=== PATIENT | male | born 1975 | race Caucasian/White ===

== ENCOUNTER 2024-11-02 21:29 | Inpatient (IN) | payer MEDICARE, MEDICAID ==
[~2024-11-02] VITALS: Ht 180.3 cm; Wt 90.6 kg
[~2024-11-02 21:29] MED LIST: ENAL10TA86 PO; LITH300C3 PO; METF1000 PO; METF500T PO; PRO20T PO; RABE20TA19 PO; SERT100T PO; SIMV20TA20 PO
[2024-11-02 22:46] LABS: Urine Protein, UAD Negative (Negative)
--- NOTE | 2024-11-02 22:51 | ED.PDOC ---
GI ASSESSMENT HPI Comments 48-year-old male who came to ER via EMS for abdominal pain. Patient does have history of diabetes. States he has been having abdominal pain for the past 3 days. Was seen at the [facility] at [place], diagnosed with gallstones, and was advised surgery. Few hours Ago patient started having episodes of nausea, vomiting and loose nonbloody diarrhea. Patient was given Zofran and Tylenol by paramedics while EN route to the ER REVIEW OF SYSTEMS: General: No fever, no chills, or fatigue HEENT: No sore throat, no earache, no congestion, no neck pain. Cardiac: No chest pain. No palpitations. Lungs: No shortness of breath, no cough. GI: Negative nausea, no vomiting, no diarrhea, no constipation, positive abdominal pain : No dysuria, frequency, or urgency. No hematuria. Musculoskeletal: No joint pain , no joint swelling, no extremity edema. Skin: No rash, no itching. Neuro: No headache, no dizziness, no weakness PHYSICAL EXAM: General: Awake, alert and oriented. No acute distress. Skin: Skin in warm, dry and intact. Appropriate color for ethnicity. HEENT: The head is normocephalic and atraumatic. Conjunctivae are clear without exudates or hemorrhage. Sclera is non-icteric. EOM are intact. No signs of nystagmus. Eyelids are normal in appearance without swelling or lesions. Oral mucosa is pink and moist Neck: The neck is supple with normal range of motion. No JVD. Cardiac: Heart rate and rhythm are normal. No murmurs, gallops, or rubs are auscultated. Respiratory: No signs of respiratory distress. Lung sounds are clear in all lobes bilaterally without rales, rhonchi, or wheezes. Abdominal: Abdomen is soft, positive right upper quadrant tenderness without distention, guarding or rigidity. Bowel sounds are present and normoactive in all four quadrants. Extremities: Upper and lower extremities are atraumatic in appearance without deformity or edema. Neurological: The patient is awake, alert and oriented to person, place, and time with normal speech. Speech is clear. There is no facial asymmetry. Psychiatric: Appropriate mood and affect. Good judgement and insight. 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 Allergies: Coded Allergies: Iodine (Verified Allergy, Severe, STOP BREATHING, 10/29/09) Home Meds Reported Medications Propranolol Hcl (Inderal) 20 Mg Tb, 20 MG PO DAILY 10/29/09 Sertraline Hcl (Zoloft) 100 Mg Tab, 100 MG PO DAILY 10/29/09 [place] Carbonate ([place] Carbonate) 300 Mg Cap, 600 MG PO BID 10/29/09 Enalapril Maleate (Vasotec) 10 Mg Tab, 10 MG PO DAILY 10/29/09 Rabeprazole Sodium (Aciphex) 20 Mg Tab, MG PO DAILY 10/29/09 Simvastatin (Simvastatin) 20 Mg Tab, 20 MG PO DAILY 10/29/09 Metformin Hydrochloride (Glucophage) 500 Mg Tab, 500 MG PO QHSP 10/29/09 Metformin Hydrochloride (Glucophage) 1,000 Mg Tab, 1000 MG PO DAILY 10/29/09 Information Source: Patient, Emergency Med Personnel Mode of Arrival: EMS Past Medical History PAST MEDICAL HISTORY: DM, Gallstones Surgical History (Other): Back surgery Family History Family History: Reviewed,noncontributory to illness Social History Smoker: Non-Smoker Alcohol: Denies ETOH Use Drugs: Denies Drug Use Lives In: Home Was a procedure done? Was a procedure done?: No GI differential Dx Differential Diagnosis: Cholecystitis, Constipation, Diverticular disease, Gastritis/PUD, Gastroenteritis, Hernia, Pancreatitis, UTI, Urolithiasis, Dehydration, Diabetes/ DKA X-Ray, Labs, Meds, VS Vital Signs Date Time Temp Pulse Resp B/P (MAP) Pulse Ox O2 Delivery O2 Flow Rate FiO2 11/03/24 01:38 98.1 97 20 129/78 (95) 96 98.1 11/03/24 01:38 Room Air* 0 21 11/03/24 01:21 79 18 151/78 11/03/24 00:19 97.6 98 18 138/90 (106) 95 97.6 11/03/24 00:11 98 18 138/90 11/02/24 21:35 98.9 74 20 136/86 99 98.9 Lab Test 11/02/24 22:48 11/02/24 22:30 Range/Units White Blood Count 9.8 4.4-10.8 10^3/uL Red Blood Count 5.58 4.5-5.90 10^6/uL Hemoglobin 14.9 13.5-17.5 g/dL Hematocrit 45.3 41.0-53.0 % Mean Corpuscular Volume 81.1 80.0-100.0 fL Mean Corpuscular Hemoglobin 26.7 L 28.0-32.0 pg Mean Corpuscular Hemoglobin Concent 32.9 32.0-36.0 g/dL Red Cell Distribution Width 16.0 H 11.8-14.3 % Platelet Count 229 140-450 10^3/uL Mean Platelet Volume 7.9 6.9-10.8 fL Neutrophils (%) (Auto) 84.7 H 37.0-80.0 % Lymphocytes (%) (Auto) 9.5 L 10.0-50.0 % Monocytes (%) (Auto) 5.5 0.0-12.0 % Eosinophils (%) (Auto) 0.1 0.0-7.0 % Basophils (%) (Auto) 0.2 0.0-2.0 % Neutrophils # (Auto) 8.3 1.6-8.6 10 ^3/uL Lymphocytes # (Auto) 0.9 0.4-5.4 10 ^3/uL Monocytes # (Auto) 0.5 0-1.3 10 ^3/uL Eosinophils # (Auto) 0 0-0.8 10 ^3/uL Basophils # (Auto) 0 0-0.2 10 ^3/uL Nucleated Red Blood Cells 0.1 % Sodium Level 136 136-145 mmol/L Potassium Level 4.5 3.5-5.1 mmol/L Chloride Level 99 98-107 mmol/L Carbon Dioxide Level 24 20-31 mmol/L Anion Gap 13 5-15 Blood Urea Nitrogen 18 9-23 mg/dL Creatinine 1.26 0.700-1.30 mg/dL Glomerular Filtration Rate Calc 70 >90 mL/min BUN/Creatinine Ratio 14.3 10.0-20.0 Serum Glucose 178 H 74-106 mg/dL Calcium Level 9.4 8.7-10.4 mg/dL Total Bilirubin 0.5 0.2-1.0 mg/dL Aspartate Amino Transferase (AST) 21 13-40 U/L Alanine Aminotransferase (ALT) 17 7-40 U/L Alkaline Phosphatase 125 H 46-116 U/L Total Protein 7.7 5.7-8.2 g/dL Albumin 4.7 3.2-4.8 g/dL Urine Color Light-yellow Yellow Urine Clarity Clear Clear Urine pH 5.5 5.0-9.0 Urine Specific [place] 1.029 1.001-1.035 Urine Protein Negative Negative Urine Ketones 2+ H Negative Urine Blood Negative Negative /uL Urine Nitrite Negative Negative Urine Bilirubin Negative Negative Urine Urobilinogen Normal Negative mg/dL Urine Leukocyte Esterase Negative Negative /uL Urine RBC 1 0 - 3 /hpf Urine Microscopic WBC 2 0-3 /HPF Urine Squamous Epithelial Cells Few <5 /hpf Urine Bacteria None seen None Seen /hpf Urine Mucus Few None Seen Urine Glucose 4+ H Normal mg/dL Current Medications Medications (Trade) Dose Ordered Sig/Donna Route Start Time Stop Time Status Last Admin Morphine Sulfate 2 mg ONCE ONCE IV 11/02/24 22:45 11/02/24 22:46 DC 11/03/24 00:11 Ondansetron HCl (Zofran) 4 mg ONCE ONCE IV 11/02/24 22:45 11/02/24 22:46 DC 11/03/24 00:07 PROCEDURE(s): ABPL - CT AB PEL WO CON-NO ORAL OR IV REASON: Right upper quadrant pain ORDER NUMBER(s): [id number], ACCESSION NUMBER(s): [id number] CLINICAL HISTORY: Right upper quadrant pain TECHNIQUE: CT of the abdomen and pelvis was performed without IV contrast. This exam was performed according to our departmental dose optimization program. Up-to-date CT equipment and radiation dose reduction techniques are utilized as appropriate. CTDI 16 DLP 1029 COMPARISON: None FINDINGS: Abdomen/Pelvis: The spleen, pancreas, adrenal glands, liver, gallbladder, kidneys, bladder, and prostate gland are grossly unremarkable. The gallbladder is full of sludge. The abdominal aorta is normal in course and caliber. There are minimal aortic atherosclerotic calcifications. There is no free intraperitoneal air or fluid. There is no enlarged abdominal pelvic lymph node. There is no bowel wall thickening or dilatation. The appendix is normal. There is mild left colon diverticulosis. Other: The imaged lower thorax demonstrates coronary artery calcifications. No acute osseous abnormality is evident. There has been posterior lumbosacral fusion surgery. The left L5 transpedicular screw is broken. Impression: No acute noncontrast CT abnormality of the abdomen / pelvis. Extensive previous lumbar sacral posterior fusion surgery. Left L5 transpedicular screw appears broken. Time of 1ST Reevaluation: 22:48 Reevaluation 1ST: Unchanged Patient Education/Counseling: Need For Follow Up Family Education/Counseling: No Family Present SEPSIS Sepsis Screen Date sepsis recognized/suspect: Nov 02, 2024 Time Sepsis recognized/suspect: 2138 Recent Procedure: No On Antibiotic Therapy: No Respiratory Rate >20: No Heart Rate >90: No Temp<36 C (96.8 F) or >38.3 C: No SBP <90 or MAP <65 mmHG: No New Acute Mental Status Change: No Is the patient on CPAP, BIPAP,: No Physician Orders Ct Ab Pel Wo Con-No Oral Or Iv (11/02/24 22:40) Complete Blood Count (11/03/24 04:00) Comprehensive Metabolic Panel (11/03/24 04:00) Glucose Blood (Accu-Chek Comfort Curve T (11/03/24 07:00) Insulin R (Human) (Insulin R) (11/03/24 22:00) Insulin R (Human) (Insulin R) (11/03/24 07:00) Allergies (11/03/24 02:15) Code Status (11/03/24 02:15) Sodium Chloride 0.9% (11/03/24 02:15) Oxygen Per Hour (11/03/24 02:15) Hydrocodone-Acet 5/325mg Tab ([place] 5/32 (11/03/24 02:15) Ondansetron Hcl (Zofran) (11/03/24 02:15) Complete Blood Count (11/04/24 04:00) Comprehensive Metabolic Panel (11/04/24 04:00) Condition: Serious (11/03/24 02:15) Acetaminophen Tablet (Tylenol Tablet) (11/03/24 02:15) Clear Liq Diet (11/03/24 Breakfast) Bedrest With Bathroom Privileg (11/03/24 02:15) Morphine Sulfate Injection (11/03/24 02:15) Sequential Compression Device (11/03/24 ) Dextrose 50% Syringe (11/03/24 02:15) Vital Signs Date Time Temp Pulse Resp B/P (MAP) Pulse Ox O2 Delivery O2 Flow Rate FiO2 11/03/24 01:38 98.1 97 20 129/78 (95) 96 98.1 11/03/24 01:38 Room Air* 0 21 11/03/24 01:21 79 18 151/78 11/03/24 00:19 97.6 98 18 138/90 (106) 95 97.6 11/03/24 00:11 98 18 138/90 11/02/24 21:35 98.9 74 20 136/86 99 98.9 Laboratory Tests Test 11/02/24 22:48 White Blood Count 9.8 10^3/uL (4.4-10.8) Medications Medications Dose Ordered Sig/Donna Route Start Time Stop Time Status Last Admin Dose Admin Morphine Sulfate 2 mg ONCE ONCE IV 11/02/24 22:45 11/02/24 22:46 DC 11/03/24 00:11 Ondansetron HCl 4 mg ONCE ONCE IV 11/02/24 22:45 11/02/24 22:46 DC 11/03/24 00:07 Departure 1 Departure Time of Disposition: 00:58 Impression: Primary Impression: Right upper quadrant abdominal pain Additional Impressions: Gallbladder sludge Hyperglycemia Disposition: ADMITTED INPATIENT Condition: Stable Comments Patient with continued severe abdominal pain, gallbladder sludge, Patient admitted to hospitalist service for further treatment, evaluation and monitoring. Critical Care Note Critical Care Time?: No Stability Stability form required: No Heart Score Heart Score: Heart Score Response (Comments) Value History N/A 0 EKG N/A 0 Age N/A 0 Risk Factors N/A 0 Troponin N/A 0 Total 0 I personally scribed for KIRSTIN LANGE MD ([email or web address]) on 11/02/24 at 22:51. Electronically submitted by Jonathon Limon ([employer]). I personally scribed for KIRSTIN LANGE MD ([email or web address]) on 11/02/24 at 23:53. Electronically submitted by Jonathon Limon ([employer]). KIRSTIN LANGE MD Nov 02, 2024 22:51
[2024-11-02 23:18] LABS: Hemoglobin 14.9 g/dL (13.5-17.5)
[2024-11-02 23:20] LABS: Hematocrit 45.3 % (41.0-53.0); Mean Corpuscular Hemoglobin 26.7 pg (28.0-32.0); Mean Corpuscular Volume 81.1 fL (80.0-100.0); Nucleated Red Blood Cells % 0.1 %
--- NOTE | 2024-11-02 23:22 | DVH ---
CLINICAL HISTORY: Right upper quadrant pain TECHNIQUE: CT of the abdomen and pelvis was performed without IV contrast. This exam was performed ac cording to our departmental dose optimization program. Up-to-date CT equipment and radiation dose red uction techniques are utilized as appropriate. CTDI 16 DLP 1029 COMPARISON: None FINDINGS: Abdomen/Pelvis: The spleen, pancreas, adrenal glands, liver, gallbladder, kidneys, bladder, and prostate gland are gr ossly unremarkable. The gallbladder is full of sludge. The abdominal aorta is normal in course and caliber. There are minimal aortic atherosclerotic calcifi cations. There is no free intraperitoneal air or fluid. There is no enlarged abdominal pelvic lymph node. There is no bowel wall thickening or dilatation. The appendix is normal. There is mild left colon div erticulosis. Other: The imaged lower thorax demonstrates coronary artery calcifications. No acute osseous abnormality is evident. There has been posterior lumbosacral fusion surgery. The lef t L5 transpedicular screw is broken. Impression: No acute noncontrast CT abnormality of the abdomen / pelvis. Extensive previous lumbar sacral posterior fusion surgery. Left L5 transpedicular screw appears broke n.
[2024-11-02 23:39] LABS: Alanine Aminotransferase 17 U/L (7-40); Albumin 4.7 g/dL (3.2-4.8); Anion Gap 13 (5-15); BUN/Creatinine Ratio 14.3 (10.0-20.0); Bilirubin, Total 0.5 mg/dL (0.2-1.0); Blood Urea Nitrogen 18 mg/dL (9-23); Calcium 9.4 mg/dL (8.7-10.4); Carbon Dioxide 24 mmol/L (20-31); Chloride 99 mmol/L (98-107); Potassium 4.5 mmol/L (3.5-5.1); Sodium 136 mmol/L (136-145); Total Protein 7.7 g/dL (5.7-8.2)
[2024-11-02 23:48] LABS: Alkaline Phosphatase 125 U/L (46-116); Glucose 178 mg/dL (74-106)
[2024-11-03] MEDS: ONDANSETRON HCL 4 MG/2 ML VIAL IV ONE (00:07)
[2024-11-03] MEDS: MORPHINE SULFATE INJ 2 MG/ml SYRG IV ONE (00:11)
[2024-11-03] MEDS ORDERED: DEXTROSE (50%) 50ML SYRG IV PRN (02:15)
[2024-11-03] MEDS ORDERED: HYDROcodone-ACET 5/325MG TAB PO PRN (02:15)
[2024-11-03] MEDS: ONDANSETRON HCL 4 MG/2 ML VIAL IV PRN ×2 (02:38→14:59)
[2024-11-03] MEDS: MORPHINE SULFATE INJ 2 MG/ml SYRG IV PRN ×2 (02:38→08:10)
[2024-11-03] MEDS: SODIUM CHLORIDE 0.9% 1,000 ML IV SCH (03:09)
[2024-11-03] MEDS ORDERED: MORPHINE SULFATE INJ 2 MG/ml SYRG IV ONE (03:30)
[2024-11-03] MEDS: SODIUM CHLORIDE 0.9% 1,000 ML IV ONE (04:16)
[2024-11-03] MEDS: PANTOPRAZOLE 40 MG/10 ML VIAL INJ IV SCH (04:19)
--- NOTE | 2024-11-03 04:37 | DVH ---
CHEST RADIOGRAPH Indication: sob Technique: 1 view Comparison: None FINDINGS: Lines and Tubes: None Lungs/Pleura: Low lung volumes with vascular. No focal consolidation or evident pleural abnormality. Cardiomediastinum: Unremarkable. Other: No acute osseous abnormality. Partially imaged lumbar hardware. IMPRESSION: 1. Low lung volumes without acute cardiopulmonary abnormality.
[2024-11-03 04:41] LABS: Opiate Scree,Urine Neg (NEGATIVE)
[2024-11-03 04:55] LABS: Amphetamine Screen, Urine Neg (NEGATIVE); Barbiturate Scree,Urine Neg (NEGATIVE); Benzodiazephine Screen, Urine Neg (NEGATIVE); Cannabinoid Screen, Urine Neg (NEGATIVE); Cocaine Screen, Urine Neg (NEGATIVE); Phencyclidine Screen, Urine Neg (NEGATIVE)
[2024-11-03 05:43] LABS: Hematocrit 45.0 % (41.0-53.0); Hemoglobin 14.6 g/dL (13.5-17.5); Mean Corpuscular Hemoglobin 26.3 pg (28.0-32.0); Mean Corpuscular Volume 81.3 fL (80.0-100.0); Nucleated Red Blood Cells % 0.0 %
[2024-11-03] MEDS: ACCU-CHEK COMFORT CURVE STRIP VI SCH (06:10)
[2024-11-03] MEDS: InsuLIN REG 1unit/0.01ml Soln (100units/ml) SC SCH ×2 (06:11→21:06)
[2024-11-03 06:31] LABS: Alanine Aminotransferase 15 U/L (7-40); Albumin 4.3 g/dL (3.2-4.8); Alkaline Phosphatase 113 U/L (46-116); Anion Gap 14 (5-15); BUN/Creatinine Ratio 12.8 (10.0-20.0); Blood Urea Nitrogen 14 mg/dL (9-23); Calcium 8.9 mg/dL (8.7-10.4); Carbon Dioxide 21 mmol/L (20-31); Chloride 103 mmol/L (98-107); Cholesterol 121 mg/dL (< 200); Potassium 4.2 mmol/L (3.5-5.1); Sodium 138 mmol/L (136-145); Total Protein 7.3 g/dL (5.7-8.2); Triglycerides 126 mg/dL (< 150)
[2024-11-03 06:32] LABS: Bilirubin, Total 0.3 mg/dL (0.2-1.0); Glucose 132 mg/dL (74-106); HDL Cholesterol 38 mg/dL (40-59)
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
[2024-11-03 06:45] LABS: Lipase 53 U/L (12-53)
--- NOTE | 2024-11-03 07:35 | DVH ---
INDICATION: to rule out Acute Cholecystitis TECHNIQUE: Multiple real-time sonographic images were obtained of the right upper quadrant. COMPARISON: None FINDINGS: The liver demonstrates homogeneous echotexture without focal mass lesions. The liver measu res 18 cm. There is no intrahepatic or extrahepatic ductal dilatation. The common duct measures 0.5 cm. The gallbladder is without evidence of stone or sludge. The gallbladder wall measures 0.3 cm and is w ithin normal limits. The right kidney measures 10.5 cm. The right kidney is normal in contour, size, and shape. The echoge nicity is normal. There is no hydronephrosis. The pancreas is not well visualized due to overlying bowel gas. IMPRESSION: No sonographic evidence of gallstones or acute cholecystitis. Hepatomegaly.
[2024-11-03 09:35] VITALS: BP 97/57; PULSE 86; RESP 16; TEMP 98.2; O2SAT 97
[2024-11-03] MEDS: PIPERACILLIN-TAZOB 3.375GM 100 ML IV SCH ×2 (11:16→17:01)
[2024-11-03] MEDS: LACTATED RINGER'S 1,000 ML IV ONE (12:15)
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
[2024-11-03 12:57] VITALS: BP 127/83; PULSE 87; RESP 17; TEMP 97.9; O2SAT 98
[2024-11-03] MEDS: BACLOFEN 10 MG TAB PO SCH (13:14)
[2024-11-03 17:07] VITALS: BP 115/77; PULSE 87; RESP 20; TEMP 97.9; O2SAT 96
--- NOTE | 2024-11-03 17:32 | DVHINCON2 ---
Date of service: Nov 03, 2024 Referring Physician Nba Reason for Consultation Right upper quadrant abdominal pain History of Present Illness The patient is a 40-year-old male with diabetes type 2, hyperlipidemia, with complains of right upper quadrant abdominal pain radiating to the back for one week. Patient was seen at an outside hospital and told that he might have gallstones or a malignancy. Patient was discharged and subsequently came to this hospital. He states that the pain has been persistent and fluctuates in intensity. It is sharp. He has no prior history of similar symptoms. Patient denies any fevers or chills. He denies melena or hematemesis. Imaging study just to help back surgery Past Medical History Diabetes Hyperlipidemia Past Surgical History Back surgery Family History: Diabetes mellitus G8 MOTHER G8 FATHER FH: cancer G8 MOTHER Family History No gastrointestinal diseases or malignancies Social History No significant tobacco, alcohol or recreational drug use Allergies: Coded Allergies: Iodine (Verified Allergy, Severe, STOP BREATHING, 10/29/09) Home Meds Reported Medications Propranolol Hcl (Inderal) 20 Mg Tb, 20 MG PO DAILY 10/29/09 Sertraline Hcl (Zoloft) 100 Mg Tab, 100 MG PO DAILY 10/29/09 [place] Carbonate ([place] Carbonate) 300 Mg Cap, 600 MG PO BID 10/29/09 Enalapril Maleate (Vasotec) 10 Mg Tab, 10 MG PO DAILY 10/29/09 Rabeprazole Sodium (Aciphex) 20 Mg Tab, MG PO DAILY 10/29/09 Simvastatin (Simvastatin) 20 Mg Tab, 20 MG PO DAILY 10/29/09 Metformin Hydrochloride (Glucophage) 500 Mg Tab, 500 MG PO QHSP 10/29/09 Metformin Hydrochloride (Glucophage) 1,000 Mg Tab, 1000 MG PO DAILY 10/29/09 Current Medications Current Medications Medications (Trade) Dose Ordered Sig/Donna Route PRN Reason Start Time Stop Time Status Last Admin Diagnostic Test (Pha) (Accu-Chek Comfort Curve T) 1 strip ACHS 11/03/24 07:00 11/03/24 17:05 Insulin Human Regular (InsuLIN R) HS SC 11/03/24 22:00 Insulin Human Regular (InsuLIN R) AC SC 11/03/24 07:00 Dextrose 50 ml UD PRN IV Blood Sugar LESS THAN 60 11/03/24 02:15 Sodium Chloride 1,000 ml @ 60 mls/hr [id number] IV 11/03/24 02:15 11/03/24 04:14 DC 11/03/24 03:09 Acetaminophen/ Hydrocodone Bitart ([place] 5/325MG Tab) 1 tab Q4HP PRN PO MODERATE PAIN (4-6 PAIN SCALE) 11/03/24 02:15 11/03/24 04:14 DC Ondansetron HCl (Zofran) 4 mg Q4HP PRN IV NAUSEA / VOMITING 11/03/24 02:15 11/03/24 12:31 DC 11/03/24 08:11 Acetaminophen (Tylenol Tablet) 650 mg Q6HP PRN PO PAIN SCALE 1-3 OR TEMP>100.4 11/03/24 02:15 Morphine Sulfate 2 mg Q4HPRN PRN IV SEVERE PAIN (7-10 PAIN SCALE) 11/03/24 02:15 11/03/24 04:14 DC 11/03/24 02:38 Ondansetron HCl (Zofran) 4 mg Q4HP PRN IV NAUSEA / VOMITING 11/03/24 03:30 11/03/24 14:59 Pantoprazole Sodium (Protonix) 40 mg DAILY IV 11/03/24 04:15 11/03/24 11:15 Morphine Sulfate 1 mg Q6HP PRN IV SEVERE PAIN (7-10 PAIN SCALE) 11/03/24 04:15 11/03/24 15:00 Piperacillin Sod/ Tazobactam Sod 100 ml @ 25 mls/hr Q8HR IV 11/03/24 06:00 11/03/24 14:23 DC 11/03/24 11:16 Baclofen (Liorisal Tablet) 10 mg Q12HR PO 11/03/24 12:30 11/03/24 13:14 Piperacillin Sod/ Tazobactam Sod 100 ml @ 25 mls/hr Q8H IV 11/03/24 17:00 11/03/24 17:01 Review of Systems Normal review of systems Vital Signs Vital Signs Date Time Temp Pulse Resp B/P (MAP) Pulse Ox O2 Delivery O2 Flow Rate FiO2 11/03/24 17:07 97.9 87 20 115/77 (90) 96 97.9 11/03/24 01:38 Room Air* 0 21 Physical Exam General: Well-developed well-nourished HEENT: NC/AT EOMI PERRLA O/P clear, no JVD or cervical lymphadenopathy, no scleral icterus Heart: Regular rate and rhythm, no murmurs rubs or gallops Lungs: Clear to auscultation bilaterally, no wheezes rales or rhonchi Abdomen: Soft, nontender, nondistended, no organomegaly, normoactive bowel sounds Extremity: No clubbing cyanosis or edema, no rashes or bruises Neuro: Cranial nerves 2-12 grossly intact, moves all four extremities, no asterixis Labs/Diagnostic Data Labs Test 11/03/24 17:04 11/03/24 05:04 11/02/24 22:48 11/02/24 22:30 Range/Units POC Glucose 94 70-106 mg/dl White Blood Count 7.4 4.4-10.8 10^3/uL Red Blood Count 5.53 4.5-5.90 10^6/uL Hemoglobin 14.6 13.5-17.5 g/dL Hematocrit 45.0 41.0-53.0 % Mean Corpuscular Volume 81.3 80.0-100.0 fL Mean Corpuscular Hemoglobin 26.3 L 28.0-32.0 pg Mean Corpuscular Hemoglobin Concent 32.4 32.0-36.0 g/dL Red Cell Distribution Width 15.8 H 11.8-14.3 % Platelet Count 182 140-450 10^3/uL Mean Platelet Volume 7.9 6.9-10.8 fL Neutrophils (%) (Auto) 80.6 H 37.0-80.0 % Lymphocytes (%) (Auto) 14.6 10.0-50.0 % Monocytes (%) (Auto) 4.6 0.0-12.0 % Eosinophils (%) (Auto) 0.0 0.0-7.0 % Basophils (%) (Auto) 0.2 0.0-2.0 % Neutrophils # (Auto) 6.0 1.6-8.6 10 ^3/uL Lymphocytes # (Auto) 1.1 0.4-5.4 10 ^3/uL Monocytes # (Auto) 0.3 0-1.3 10 ^3/uL Eosinophils # (Auto) 0 0-0.8 10 ^3/uL Basophils # (Auto) 0 0-0.2 10 ^3/uL Nucleated Red Blood Cells 0.0 % Sodium Level 138 136-145 mmol/L Potassium Level 4.2 3.5-5.1 mmol/L Chloride Level 103 98-107 mmol/L Carbon Dioxide Level 21 20-31 mmol/L Anion Gap 14 5-15 Blood Urea Nitrogen 14 9-23 mg/dL Creatinine 1.09 0.700-1.30 mg/dL Glomerular Filtration Rate Calc 84 >90 mL/min BUN/Creatinine Ratio 12.8 10.0-20.0 Serum Glucose 132 H 74-106 mg/dL Hemoglobin A1c 6.9 H <5.7 % A1C Lactic Acid Level 1.4 0.4-2.0 mmol/L Calcium Level 8.9 8.7-10.4 mg/dL Total Bilirubin 0.3 0.2-1.0 mg/dL Aspartate Amino Transferase (AST) 20 13-40 U/L Alanine Aminotransferase (ALT) 15 7-40 U/L Alkaline Phosphatase 113 46-116 U/L Total Protein 7.3 5.7-8.2 g/dL Albumin 4.3 3.2-4.8 g/dL Triglycerides Level 126 < 150 mg/dL Cholesterol Level 121 < 200 mg/dL LDL Cholesterol 62 < 100 mg/dL HDL Cholesterol 38 L 40-59 mg/dL Lipase 53 12-53 U/L Troponin I High Sensitivity 3 L </=54 ng/L Plasma/Serum Blood Alcohol < 3.0 <10 mg/dL Urine Color Light-yellow Yellow Urine Clarity Clear Clear Urine pH 5.5 5.0-9.0 Urine Specific [place] 1.029 1.001-1.035 Urine Protein Negative Negative Urine Ketones 2+ H Negative Urine Blood Negative Negative /uL Urine Nitrite Negative Negative Urine Bilirubin Negative Negative Urine Urobilinogen Normal Negative mg/dL Urine Leukocyte Esterase Negative Negative /uL Urine RBC 1 0 - 3 /hpf Urine Microscopic WBC 2 0-3 /HPF Urine Squamous Epithelial Cells Few <5 /hpf Urine Bacteria None seen None Seen /hpf Urine Mucus Few None Seen Urine Glucose 4+ H Normal mg/dL Urine Opiates Screen Neg NEGATIVE Urine Fentanyl Screen Neg NEGATIVE Urine Barbiturates Screen Neg NEGATIVE Urine Phencyclidine Screen Neg NEGATIVE Urine Amphetamines Screen Neg NEGATIVE Urine Benzodiazepines Screen Neg NEGATIVE Urine Cocaine Screen Neg NEGATIVE Urine Cannabinoids Screen Neg NEGATIVE Assessment 1. Right upper quadrant abdominal pain 2. Diabetes 3. Hyperlipidemia 4. Hepatomegaly Problems(with codes): (1) Hyperglycemia (2) Right upper quadrant abdominal pain (3) Gallbladder sludge Plan/Recommendation 1. Consider HIDA scan 2. Surgical consultation for possible acalculous cholecystitis 3. If symptoms persist or worsen consider EGD 4. Continue with pain control and antiemetics Plan discussed with: Patient ANJALI SEYMOUR MD Nov 03, 2024 17:32
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
[2024-11-03 21:00] VITALS: BP 111/81; PULSE 89; RESP 16; TEMP 98.3; O2SAT 91
[2024-11-04 01:00] VITALS: BP 114/75; PULSE 88; RESP 18; TEMP 97.8; O2SAT 91
[2024-11-04 05:00] VITALS: BP 101/66; PULSE 88; RESP 16; TEMP 97.7; O2SAT 92
[2024-11-04 06:53] LABS: Hemoglobin 14.5 g/dL (13.5-17.5)
[2024-11-04 06:56] LABS: Hematocrit 43.4 % (41.0-53.0); Mean Corpuscular Hemoglobin 26.8 pg (28.0-32.0); Mean Corpuscular Volume 80.2 fL (80.0-100.0); Nucleated Red Blood Cells % 0.1 %
[2024-11-04 07:11] LABS: Alanine Aminotransferase 13 U/L (7-40); Albumin 4.0 g/dL (3.2-4.8); Alkaline Phosphatase 98 U/L (46-116); Anion Gap 12 (5-15); BUN/Creatinine Ratio 13.1 (10.0-20.0); Blood Urea Nitrogen 13 mg/dL (9-23); Calcium 8.9 mg/dL (8.7-10.4); Carbon Dioxide 24 mmol/L (20-31); Chloride 103 mmol/L (98-107); Glucose 92 mg/dL (74-106); Potassium 4.0 mmol/L (3.5-5.1); Sodium 139 mmol/L (136-145); Total Protein 6.7 g/dL (5.7-8.2)
[2024-11-04 07:12] LABS: Bilirubin, Total 0.4 mg/dL (0.2-1.0)
[2024-11-04 09:00] VITALS: BP 122/84; PULSE 86; RESP 18; TEMP 97.7; O2SAT 96
[2024-11-04 13:00] VITALS: BP 122/77; PULSE 99; RESP 18; TEMP 97.7; O2SAT 96
--- NOTE | 2024-11-04 14:49 | DVHINCON2 ---
Consultation - Surgical Date Seen: Nov 04, 2024 Referring Physician Reason for Consultation Acute cholecystitis History of Present Illness History of Present Illness Mr. Wilson is a 48-year-old male who presented to hospital due to right upper quadrant epigastric abdominal pain that has been going on since Wednesday. Patient states that he presented to a hospital in [place], where he was diagnosed with acute cholecystitis but he was released from the hospital without surgery. Patient states that the pain improves slightly during the week but then he ate some mashed potatoes and gravy which aggravated the pain, ultimately make it adhered to [facility]. Denies acholic stools, fevers, chills, darkening of urine, the yellowing of eyes. 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 left arm surgery, left jaw surgery Family and Social History Family and Social History Noncontributory ETOH/T Ob/drugs denies Allergies and medications Allergies: Coded Allergies: Iodine (Verified Allergy, Severe, STOP BREATHING, 10/29/09) Home Meds Reported Medications Propranolol Hcl (Inderal) 20 Mg Tb, 20 MG PO DAILY 10/29/09 Sertraline Hcl (Zoloft) 100 Mg Tab, 100 MG PO DAILY 10/29/09 Erie Carbonate ([place] Carbonate) 300 Mg Cap, 600 MG PO BID 10/29/09 Enalapril Maleate (Vasotec) 10 Mg Tab, 10 MG PO DAILY 10/29/09 Rabeprazole Sodium (Aciphex) 20 Mg Tab, MG PO DAILY 10/29/09 Simvastatin (Simvastatin) 20 Mg Tab, 20 MG PO DAILY 10/29/09 Metformin Hydrochloride (Glucophage) 500 Mg Tab, 500 MG PO QHSP 10/29/09 Metformin Hydrochloride (Glucophage) 1,000 Mg Tab, 1000 MG PO DAILY 10/29/09 Review of systems Review of Systems: Deferred Examination Vital signs Vital Signs Date Time Temp Pulse Resp B/P (MAP) Pulse Ox O2 Delivery O2 Flow Rate FiO2 11/04/24 13:59 90 18 122/77 11/04/24 13:00 97.7 96 97.7 11/04/24 07:58 Room Air* 0 21 Medications Current Medications Medications (Trade) Dose Ordered Sig/Donna Route PRN Reason Start Time Stop Time Status Last Admin Insulin Human Regular (InsuLIN R) HS SC 11/03/24 22:00 Piperacillin Sod/ Tazobactam Sod 100 ml @ 25 mls/hr Q8H IV 11/03/24 17:00 11/04/24 09:00 Laboratory Labs Test 11/04/24 12:20 11/04/24 06:23 11/03/24 05:04 11/02/24 22:48 Range/Units POC Glucose 76 70-106 mg/dl White Blood Count 6.4 4.4-10.8 10^3/uL Red Blood Count 5.41 4.5-5.90 10^6/uL Hemoglobin 14.5 13.5-17.5 g/dL Hematocrit 43.4 41.0-53.0 % Mean Corpuscular Volume 80.2 80.0-100.0 fL Mean Corpuscular Hemoglobin 26.8 L 28.0-32.0 pg Mean Corpuscular Hemoglobin Concent 33.4 32.0-36.0 g/dL Red Cell Distribution Width 15.9 H 11.8-14.3 % Platelet Count 178 140-450 10^3/uL Mean Platelet Volume 7.8 6.9-10.8 fL Neutrophils (%) (Auto) 73.2 37.0-80.0 % Lymphocytes (%) (Auto) 16.0 10.0-50.0 % Monocytes (%) (Auto) 9.2 0.0-12.0 % Eosinophils (%) (Auto) 0.8 0.0-7.0 % Basophils (%) (Auto) 0.8 0.0-2.0 % Neutrophils # (Auto) 4.7 1.6-8.6 10 ^3/uL Lymphocytes # (Auto) 1.0 0.4-5.4 10 ^3/uL Monocytes # (Auto) 0.6 0-1.3 10 ^3/uL Eosinophils # (Auto) 0.1 0-0.8 10 ^3/uL Basophils # (Auto) 0 0-0.2 10 ^3/uL Nucleated Red Blood Cells 0.1 % Sodium Level 139 136-145 mmol/L Potassium Level 4.0 3.5-5.1 mmol/L Chloride Level 103 98-107 mmol/L Carbon Dioxide Level 24 20-31 mmol/L Anion Gap 12 5-15 Blood Urea Nitrogen 13 9-23 mg/dL Creatinine 0.99 0.700-1.30 mg/dL Glomerular Filtration Rate Calc 94 >90 mL/min BUN/Creatinine Ratio 13.1 10.0-20.0 Serum Glucose 92 74-106 mg/dL Calcium Level 8.9 8.7-10.4 mg/dL Total Bilirubin 0.4 0.2-1.0 mg/dL Aspartate Amino Transferase (AST) 17 13-40 U/L Alanine Aminotransferase (ALT) 13 7-40 U/L Alkaline Phosphatase 98 46-116 U/L Total Protein 6.7 5.7-8.2 g/dL Albumin 4.0 3.2-4.8 g/dL Hemoglobin A1c 6.9 H <5.7 % A1C Lactic Acid Level 1.4 0.4-2.0 mmol/L Triglycerides Level 126 < 150 mg/dL Cholesterol Level 121 < 200 mg/dL LDL Cholesterol 62 < 100 mg/dL HDL Cholesterol 38 L 40-59 mg/dL Lipase 53 12-53 U/L Troponin I High Sensitivity 3 L </=54 ng/L Plasma/Serum Blood Alcohol < 3.0 <10 mg/dL Test 11/02/24 22:30 Range/Units Urine Color Light-yellow Yellow Urine Clarity Clear Clear Urine pH 5.5 5.0-9.0 Urine Specific [place] 1.029 1.001-1.035 Urine Protein Negative Negative Urine Ketones 2+ H Negative Urine Blood Negative Negative /uL Urine Nitrite Negative Negative Urine Bilirubin Negative Negative Urine Urobilinogen Normal Negative mg/dL Urine Leukocyte Esterase Negative Negative /uL Urine RBC 1 0 - 3 /hpf Urine Microscopic WBC 2 0-3 /HPF Urine Squamous Epithelial Cells Few <5 /hpf Urine Bacteria None seen None Seen /hpf Urine Mucus Few None Seen Urine Glucose 4+ H Normal mg/dL Urine Opiates Screen Neg NEGATIVE Urine Fentanyl Screen Neg NEGATIVE Urine Barbiturates Screen Neg NEGATIVE Urine Phencyclidine Screen Neg NEGATIVE Urine Amphetamines Screen Neg NEGATIVE Urine Benzodiazepines Screen Neg NEGATIVE Urine Cocaine Screen Neg NEGATIVE Urine Cannabinoids Screen Neg NEGATIVE Examination: GENERAL:Normal, HEENT:Normal (No icterus), ABDOMEN:Abnormal (Nondistended, infraumbilical midline scar, soft, depressible, right upper quadrant tenderness, no rebound, no guarding) Problem List/Assessment/Plan Problems: (1) Acute cholecystitis due to biliary calculus Assessment and Plan Mr. Wilson is a 48-year-old male who presented with the acute cholecystitis. Ultrasound was positive for gallstones, without pericholecystic fluid. On physical exam patient is exquisitely tender in the right upper quadrant given this findings he does have acute cholecystitis. LFTs are normal. Patient will benefit from laparoscopic cholecystectomy. Procedure, risks, benefits, alternatives, and complications discussed with the patient patient agrees with surgical plan. I also reviewed the patient's CT scan and there appears to be some thickening in the distal esophagus, he might benefit from upper endoscopy. 1. Scheduled for OR tomorrow a.m. for laparoscopic cholecystectomy, possible open, possible drain placement 2. Full liquid diet with NPO at midnight 3. Pain and nausea control 4. A.m. labs CBC, CMP, type and screen 5. Out of bed and ambulate 6. Consider EGD for distal esophageal thickening seen on CT scan, although the esophagus was not fully appreciated given that it was a and pelvis CT. Plan discussed with Plan discussed with: Patient Visit Coding Surgery Date of Service if different f: Nov 04, 2024 Billing Provider: RILEY CARBAJAL MD Surgery Visit Codes: [id number] - INP CONSULT <110 MIN RILEY CARBAJAL MD Nov 04, 2024 14:49
[2024-11-04 17:00] VITALS: BP 123/83; PULSE 90; RESP 18; TEMP 98; O2SAT 97
--- NOTE | 2024-11-04 17:56 | DVHPN2 ---
Subjective Still symptomatic with pain in RUQ Reviewed: H&P Changes from previous H/P or p: Changes General: Per HPI Objective Vitals Vital Signs Date Time Temp Pulse Resp B/P (MAP) Pulse Ox O2 Delivery O2 Flow Rate FiO2 11/04/24 17:00 98.0 90 18 123/83 (96) 97 98.0 11/04/24 07:58 Room Air* 0 21 Intake/Output Intake and Output 11/04/24 07:00 Intake Total 150 ml Balance 150 ml Intake Oral 0 ml IV Total 150 ml # Voids 1 General Appearance: Alert, Oriented X3, Cooperative Lungs: Clear to auscultation, Normal air movement Cardiovascular: Regular rate, Normal S1, Normal S2 Abdomen: Other (+Tenderness RUQ) Extremities: No edema Medications Current Medications Medications Dose Ordered Sig/Donna Route Start Time Stop Time Status Last Admin Dose Admin Diagnostic Test (Pha) 1 strip ACHS 11/03/24 07:00 11/04/24 17:15 1 STRIP Insulin Human Regular HS SC 11/03/24 22:00 Insulin Human Regular AC SC 11/03/24 07:00 Dextrose 50 ml UD PRN IV 11/03/24 02:15 Acetaminophen 650 mg Q6HP PRN PO 11/03/24 02:15 Ondansetron HCl 4 mg Q4HP PRN IV 11/03/24 03:30 11/04/24 13:29 4 MG Pantoprazole Sodium 40 mg DAILY IV 11/03/24 04:15 11/04/24 10:19 40 MG Morphine Sulfate 1 mg Q6HP PRN IV 11/03/24 04:15 11/04/24 13:29 1 MG Baclofen 10 mg Q12HR PO 11/03/24 12:30 11/04/24 10:19 10 MG Piperacillin Sod/ Tazobactam Sod 100 ml @ 25 mls/hr Q8H IV 11/03/24 17:00 11/04/24 09:00 25 MLS/HR Laboratory Results Laboratory Tests 11/04/24 06:23 Chemistry Test 11/04/24 06:23 Albumin 4.0 g/dL (3.2-4.8) Calcium Level 8.9 mg/dL (8.7-10.4) Total Protein 6.7 g/dL (5.7-8.2) LFT Test 11/04/24 06:23 Alanine Aminotransferase (ALT) 13 U/L (7-40) Alkaline Phosphatase 98 U/L (46-116) Aspartate Amino Transferase (AST) 17 U/L (13-40) Total Bilirubin 0.4 mg/dL (0.2-1.0) Urinalysis Test 11/02/24 22:30 Urine Color Light-yellow (Yellow) Urine Clarity Clear (Clear) Urine pH 5.5 (5.0-9.0) Urine Specific [place] 1.029 (1.001-1.035) Urine Protein Negative (Negative) Urine Ketones 2+ (Negative) H Urine Blood Negative /uL (Negative) Urine Nitrite Negative (Negative) Urine Bilirubin Negative (Negative) Urine Urobilinogen Normal mg/dL (Negative) Urine Leukocyte Esterase Negative /uL (Negative) Urine RBC 1 /hpf (0 - 3) Urine Microscopic WBC 2 /HPF (0-3) Urine Squamous Epithelial Cells Few /hpf (<5) Urine Bacteria None seen /hpf (None Seen) Urine Mucus Few (None Seen) Urine Glucose 4+ mg/dL (Normal) H Assessment/Plan Assessment/Plan Acute cholecystitis DM2 Mixed hyperlipidemia Hepatomegaly PLAN: IV fluids NPO after midnight Zosyn Pain control Lap jakob in am Plan discussed with: Patient My Orders Orders - ZULEIKA LEWIS MD Procedure Category Date Status Time * Surgical Consult CONS 11/04/24 Transmitted Date of Service: Nov 04, 2024 Billing Provider: ZULEIKA LEWIS MD Common Visit Codes: [id number] INP/OBS CARE(HIGH) ZULEIKA LEWIS MD Nov 04, 2024 17:56
[2024-11-04] MEDS: LACTATED RINGER'S 1,000 ML IV SCH (18:00)
[2024-11-04 21:17] VITALS: BP 123/83; PULSE 98; RESP 17; TEMP 98; O2SAT 96
[2024-11-05] VITALS (8 sets, daily range): BP systolic 110–122; BP diastolic 68–89; PULSE 74–95; RESP 17–18; TEMP 97.6–98.2; O2SAT 94–98
[2024-11-05 08:29] LABS: Hemoglobin 14.7 g/dL (13.5-17.5)
[2024-11-05 08:31] LABS: Hematocrit 44.0 % (41.0-53.0); Mean Corpuscular Hemoglobin 26.8 pg (28.0-32.0); Mean Corpuscular Volume 80.2 fL (80.0-100.0); Nucleated Red Blood Cells % 0.0 %
[2024-11-05 08:44] LABS: INR 1.03 (0.9-1.15); Partial Thromboplastin Time 27.6 SEC (24.5-34.5); Prothrombin Time 10.9 sec (9.3-11.8)
[2024-11-05 08:47] LABS: Alanine Aminotransferase 23 U/L (7-40); Albumin 4.1 g/dL (3.2-4.8); Alkaline Phosphatase 101 U/L (46-116); Anion Gap 10 (5-15); BUN/Creatinine Ratio 10.7 (10.0-20.0); Bilirubin, Total 0.3 mg/dL (0.2-1.0); Blood Urea Nitrogen 13 mg/dL (9-23); Calcium 9.0 mg/dL (8.7-10.4); Carbon Dioxide 27 mmol/L (20-31); Chloride 104 mmol/L (98-107); Glucose 133 mg/dL (74-106); Magnesium 2.1 mg/dL (1.6-2.6); Potassium 4.2 mmol/L (3.5-5.1); Sodium 141 mmol/L (136-145); Total Protein 6.8 g/dL (5.7-8.2)
--- NOTE | 2024-11-05 11:17 | DVHPN2 ---
Progress Note - Surgical Date Seen: Nov 05, 2024 Post op day Post op day: 0 Subjective Patient reports: No new complaints (Still having right upper quadrant abdominal pain, no nausea, no vomiting) Review of Systems: Deferred Objective Vital signs Vital Sign Date Time Temp Pulse Resp B/P (MAP) Pulse Ox O2 Delivery O2 Flow Rate FiO2 11/05/24 10:36 86 17 118/77 11/05/24 09:00 98.2 95 98.2 11/04/24 20:00 Room Air* 0 21 Total Intake and Output 11/04/24 11/04/24 11/05/24 15:00 23:00 07:00 Intake Total 300 ml 600 ml Balance 300 ml 600 ml Medications Current Medications Medications Dose Ordered Sig/Donna Route Start Time Stop Time Status Last Admin Dose Admin Diagnostic Test (Pha) 1 strip ACHS 11/03/24 07:00 11/05/24 06:13 1 STRIP Insulin Human Regular HS SC 11/03/24 22:00 11/04/24 22:20 6 UNITS Insulin Human Regular AC SC 11/03/24 07:00 Dextrose 50 ml UD PRN IV 11/03/24 02:15 Acetaminophen 650 mg Q6HP PRN PO 11/03/24 02:15 Ondansetron HCl 4 mg Q4HP PRN IV 11/03/24 03:30 11/05/24 03:43 4 MG Pantoprazole Sodium 40 mg DAILY IV 11/03/24 04:15 11/05/24 09:00 40 MG Morphine Sulfate 1 mg Q6HP PRN IV 11/03/24 04:15 11/05/24 10:06 1 MG Piperacillin Sod/ Tazobactam Sod 100 ml @ 25 mls/hr Q8H IV 11/03/24 17:00 11/05/24 08:54 25 MLS/HR Lactated Ringer's 1,000 ml @ 75 mls/hr [id number] IV 11/04/24 18:00 Laboratory Laboratory Tests 11/05/24 07:41 Test 11/05/24 07:41 Range/Units Serum Glucose 133 H 74-106 mg/dL Examination: GENERAL:Normal, ABDOMEN:Abnormal (Nondistended, soft, depressible, right upper quadrant tenderness, no rebound, no guarding) Problem List/Assessment/Plan Assessment and Plan Mr. Digs is a 48-year-old male who presented with the acute cholecystitis, he has been having pain on and off since last Wednesday. Patient is scheduled to undergo laparoscopic cholecystectomy today. Procedure, risks, benefits, complications, and alternatives were discussed with the patient yesterday. This morning he did not have any additional questions. We will proceed with surgery as planned. 1. NPO until surgery 2. Okay for clear liquid diet after surgery 3. Labs in a.m.: CBC and CMP 4. Pain and nausea control 5. Out of bed and ambulate My Orders My Orders Orders - RILEY CARBAJAL MD Procedure Category Date Status Time Npo (Nothing By DIET 11/05/24 Transmitted Mouth) Diet Breakfast Obtain Consent For: ORDERS 11/04/24 Transmitted 14:38 Obtain Consent For WILL 11/04/24 In Process Anesthesia 14:38 Plan discussed with Plan discussed with: Patient Visit Coding Surgery Date of Service if different f: Nov 05, 2024 Billing Provider: RILEY CARBAJAL MD Surgery Visit Codes: [id number] INP/OBS CARE(HIGH) RILEY CARBAJAL MD Nov 05, 2024 11:17
--- NOTE | 2024-11-05 12:58 | DVHPN2 ---
Subjective Still symptomatic with pain in RUQ Scheduled for surgery today Reviewed: H&P Changes from previous H/P or p: Changes General: Per HPI Objective Vitals Vital Signs Date Time Temp Pulse Resp B/P (MAP) Pulse Ox O2 Delivery O2 Flow Rate FiO2 11/05/24 10:36 86 17 118/77 11/05/24 09:00 98.2 95 98.2 11/05/24 08:00 Room Air* 0 21 Intake/Output Intake and Output 11/05/24 07:00 Intake Total 900 ml Balance 900 ml Intake Oral 800 ml IV Total 100 ml # Voids 6 # Bowel Movements 1 General Appearance: Alert, Oriented X3, Cooperative Lungs: Clear to auscultation, Normal air movement Cardiovascular: Regular rate, Normal S1, Normal S2 Abdomen: Other (+Tenderness RUQ) Extremities: No edema Medications Current Medications Medications Dose Ordered Sig/Donna Route Start Time Stop Time Status Last Admin Dose Admin Diagnostic Test (Pha) 1 strip ACHS 11/03/24 07:00 11/05/24 12:00 1 STRIP Insulin Human Regular HS SC 11/03/24 22:00 11/04/24 22:20 6 UNITS Insulin Human Regular AC SC 11/03/24 07:00 Dextrose 50 ml UD PRN IV 11/03/24 02:15 Acetaminophen 650 mg Q6HP PRN PO 11/03/24 02:15 Ondansetron HCl 4 mg Q4HP PRN IV 11/03/24 03:30 11/05/24 03:43 4 MG Pantoprazole Sodium 40 mg DAILY IV 11/03/24 04:15 11/05/24 09:00 40 MG Morphine Sulfate 1 mg Q6HP PRN IV 11/03/24 04:15 11/05/24 10:06 1 MG Piperacillin Sod/ Tazobactam Sod 100 ml @ 25 mls/hr Q8H IV 11/03/24 17:00 11/05/24 08:54 25 MLS/HR Lactated Ringer's 1,000 ml @ 75 mls/hr [id number] IV 11/04/24 18:00 Laboratory Results Laboratory Tests 11/05/24 07:41 Chemistry Test 11/05/24 07:41 Albumin 4.1 g/dL (3.2-4.8) Calcium Level 9.0 mg/dL (8.7-10.4) Magnesium Level 2.1 mg/dL (1.6-2.6) Total Protein 6.8 g/dL (5.7-8.2) Coagulation Test 11/05/24 07:41 Prothrombin Time 10.9 sec (9.3-11.8) Prothrombin Time INR 1.03 (0.9-1.15) Activated Partial Thromboplast Time 27.6 SEC (24.5-34.5) LFT Test 11/05/24 07:41 Alanine Aminotransferase (ALT) 23 U/L (7-40) Alkaline Phosphatase 101 U/L (46-116) Aspartate Amino Transferase (AST) 22 U/L (13-40) Total Bilirubin 0.3 mg/dL (0.2-1.0) Urinalysis Test 11/02/24 22:30 Urine Color Light-yellow (Yellow) Urine Clarity Clear (Clear) Urine pH 5.5 (5.0-9.0) Urine Specific [place] 1.029 (1.001-1.035) Urine Protein Negative (Negative) Urine Ketones 2+ (Negative) H Urine Blood Negative /uL (Negative) Urine Nitrite Negative (Negative) Urine Bilirubin Negative (Negative) Urine Urobilinogen Normal mg/dL (Negative) Urine Leukocyte Esterase Negative /uL (Negative) Urine RBC 1 /hpf (0 - 3) Urine Microscopic WBC 2 /HPF (0-3) Urine Squamous Epithelial Cells Few /hpf (<5) Urine Bacteria None seen /hpf (None Seen) Urine Mucus Few (None Seen) Urine Glucose 4+ mg/dL (Normal) H Assessment/Plan Assessment/Plan Acute cholecystitis DM2 Mixed hyperlipidemia Hepatomegaly PLAN: IV fluids NPO after midnight Zosyn Pain control Lap jakob in am 11/05/2024: Laparoscopic cholecystectomy scheduled for today Pain control as needed IV antibiotics Plan discussed with: Patient My Orders Orders - ZULEIKA LEWIS MD Procedure Category Date Status Time * Surgical Consult CONS 11/04/24 Transmitted Lactated Ringer's PHA 11/04/24 In Process 18:00 Date of Service: Nov 05, 2024 Billing Provider: ZULEIKA LEWIS MD Common Visit Codes: [id number] INP/OBS CARE(HIGH) ZULEIKA LEWIS MD Nov 05, 2024 12:58
--- NOTE | 2024-11-05 21:50 | DVHPN2 ---
Progress Note - Dictate Date Seen: Nov 05, 2024 Medical Necessity Reason Pt with a Central, PICC or Fol: No Subjective No new complaints Still symptomatic with pain in RUQ vital signs Vital Sign Date Time Temp Pulse Resp B/P (MAP) Pulse Ox O2 Delivery O2 Flow Rate FiO2 11/05/24 21:00 97.6 74 18 115/80 (92) 95 97.6 11/05/24 08:00 Room Air* 0 21 Total Intake and Output 11/04/24 11/04/24 11/05/24 15:00 23:00 07:00 Intake Total 300 ml 600 ml Balance 300 ml 600 ml medications Current Medications Medications Dose Ordered Sig/Donna Route Start Time Stop Time Status Last Admin Dose Admin Diagnostic Test (Pha) 1 strip ACHS 11/03/24 07:00 11/05/24 17:18 1 STRIP Insulin Human Regular HS SC 11/03/24 22:00 11/04/24 22:20 6 UNITS Insulin Human Regular AC SC 11/03/24 07:00 11/05/24 17:22 3 UNITS Dextrose 50 ml UD PRN IV 11/03/24 02:15 Acetaminophen 650 mg Q6HP PRN PO 11/03/24 02:15 Ondansetron HCl 4 mg Q4HP PRN IV 11/03/24 03:30 11/05/24 03:43 4 MG Pantoprazole Sodium 40 mg DAILY IV 11/03/24 04:15 11/05/24 09:00 40 MG Morphine Sulfate 1 mg Q6HP PRN IV 11/03/24 04:15 11/05/24 17:01 1 MG Piperacillin Sod/ Tazobactam Sod 100 ml @ 25 mls/hr Q8H IV 11/03/24 17:00 11/05/24 17:05 25 MLS/HR Lactated Ringer's 1,000 ml @ 75 mls/hr [id number] IV 11/04/24 18:00 11/05/24 20:40 75 MLS/HR objective General Appearance: Alert, Oriented X3, Cooperative Lungs: Clear to auscultation, Normal air movement Cardiovascular: Regular rate, Normal S1, Normal S2 Abdomen: Other (+Tenderness RUQ) Extremities: No edema laboratory and microbiology Laboratory Tests 11/05/24 07:41 Test 11/05/24 07:41 Range/Units Serum Glucose 133 H 74-106 mg/dL Problems(with codes): (1) Acute cholecystitis due to biliary calculus (2) Gallbladder sludge (3) Right upper quadrant abdominal pain Prognosis Plan Lap jakob deferred until tomorrow Patient will be given full liquid diet today and kept NPO after midnight Pain control, IV antibiotics, monitor labs Dietary Evaluation Review Comments: 1) Encourage optimal PO intake 2) Advance to 60g CCHO cardiac diet when medically feasible 3) Follow-up with gastroenterology and cardiology 4) Continue to monitor I&O, labs, and skin integrity Expected Outcomes/Goals: 1) appetite and labs to improve 2) GI symptoms to resolve 3) diet to advance 4) f/u in 3-5 days Plan discussed with: Patient, Other (Nurse) TARUN ANTUNEZ MD Nov 05, 2024 21:50
[2024-11-05] MEDS: HYDROmorphone HCL 2 MG/ML VL/or syr IV ONE (21:52)
[2024-11-06 01:00] VITALS: BP 120/88; PULSE 76; RESP 18; TEMP 98.5; O2SAT 95
[2024-11-06 07:06] LABS: Hematocrit 42.8 % (41.0-53.0); Hemoglobin 14.5 g/dL (13.5-17.5); Mean Corpuscular Hemoglobin 27.3 pg (28.0-32.0); Mean Corpuscular Volume 80.8 fL (80.0-100.0); Nucleated Red Blood Cells % 0.1 %
[2024-11-06 07:30] LABS: Alanine Aminotransferase 20 U/L (7-40); Albumin 4.0 g/dL (3.2-4.8); Alkaline Phosphatase 97 U/L (46-116); Anion Gap 10 (5-15); BUN/Creatinine Ratio 6.1 (10.0-20.0); Calcium 8.8 mg/dL (8.7-10.4); Carbon Dioxide 27 mmol/L (20-31); Chloride 105 mmol/L (98-107); Magnesium 1.9 mg/dL (1.6-2.6); Potassium 3.8 mmol/L (3.5-5.1); Sodium 142 mmol/L (136-145); Total Protein 6.6 g/dL (5.7-8.2)
[2024-11-06 07:31] LABS: Bilirubin, Total 0.3 mg/dL (0.2-1.0)
[2024-11-06 07:39] LABS: Blood Urea Nitrogen 7 mg/dL (9-23); Glucose 121 mg/dL (74-106)
[2024-11-06] MEDS: SUCCINYLCHOLINE CHLORIDE 20 MG/ML 10ML VIAL IV ONE (07:41)
[2024-11-06] MEDS ORDERED: fentaNYL CITRATE 100 MCG/2 ML VL ONE (08:02)
[2024-11-06] MEDS ORDERED: MIDAZOLAM HCL 2MG/2ML 2ml VIAL (1mg/ml) ONE (08:02)
[2024-11-06] MEDS ORDERED: HYDROmorphone HCL 2 MG/ML VL/or syr ONE (08:02)
[2024-11-06] MEDS: BUPIVACAINE HCL 0.25% P/F 10 ML VIAL ONE (09:03)
[2024-11-06] MEDS ORDERED: PROPOFOL 10 MG/ML 20 ML IV ONE (09:26)
[2024-11-06] MEDS ORDERED: SUGAMMADEX 200mg/2ml Vial (100MG/ML) IV ONE (09:27)
[2024-11-06] MEDS ORDERED: ROCURONIUM 10MG/ML 10ML VIAL IV ONE (09:27)
[2024-11-06] MEDS ORDERED: ONDANSETRON HCL 4 MG/2 ML VIAL ONE (09:27)
[2024-11-06 09:55] VITALS: PULSE 80; RESP 15; O2SAT 95
[2024-11-06] MEDS ORDERED: MIDAZOLAM HCL 2MG/2ML 2ml VIAL (1mg/ml) IV PRN (10:15)
[2024-11-06] MEDS ORDERED: MORPHINE SULFATE 4 MG/ML SYR/VIAL IV PRN (10:15)
[2024-11-06] MEDS ORDERED: hydrALAZINE HCL 20 MG/ML VL IV PRN (10:15)
[2024-11-06] MEDS ORDERED: HYDROmorphone HCL 2 MG/ML VL/or syr IV PRN (10:15)
[2024-11-06] MEDS ORDERED: ONDANSETRON HCL 4 MG/2 ML VIAL IV PRN (10:15)
[2024-11-06] MEDS: KETOROLAC TROMETH 30 MG/ML 1ML VIAL IV ONE (10:37)
[2024-11-06 10:40] VITALS: BP 132/81; PULSE 80; RESP 16; TEMP 97.5; O2SAT 92
[2024-11-06] MEDS: MORPHINE SULFATE INJ 2 MG/ml SYRG IV PRN (11:57)
--- NOTE | 2024-11-06 12:31 | DVHPN2 ---
Subjective Still feels nauseous, seen at bedside today. Improving symptoms. Reviewed: H&P Changes from previous H/P or p: No Changes General: Per HPI Objective Vitals Vital Signs Date Time Temp Pulse Resp B/P (MAP) Pulse Ox O2 Delivery O2 Flow Rate FiO2 11/06/24 11:57 70 16 136/90 11/06/24 10:30 94 11/06/24 09:55 Mask 6.0 11/06/24 09:55 97.4 97.4 11/06/24 08:00 21 Intake/Output Intake and Output 11/06/24 07:00 Intake Total 2382 ml Balance 2382 ml Intake Oral 2147 ml IV Total 235 ml # Voids 7 # Bowel Movements 1 Exam General Appearance: Alert, Oriented X3, Cooperative, No acute distress HEENT: Atraumatic, PERRLA, EOMI, Mucous membrane moist/pink Respiratory: Clear to auscultation, Normal air movement Cardiovascular: Regular rate, Normal S1, Normal S2, No murmurs, no chest wall tenderness Abdominal: Tenderness in the right upper quadrant Extremities: No clubbing, No cyanosis, No edema, Normal pulses, No tenderness/swelling Skin: No rashes, No breakdown, No significant lesion Neuro: Normal gait, Normal speech, Strength at 5/5 X4 ext, Normal tone, Sensation intact, Cranial nerves 3-12 NL, Reflexes 2+ Psych/Mental Status: Mental status NL, Mood NL General Appearance: Alert, Oriented X3, Cooperative Lungs: Clear to auscultation, Normal air movement Cardiovascular: Regular rate, Normal S1, Normal S2 Abdomen: Other (+Tenderness RUQ) Extremities: No edema Medications Current Medications Medications Dose Ordered Sig/Donna Route Start Time Stop Time Status Last Admin Dose Admin Diagnostic Test (Pha) 1 strip ACHS 11/03/24 07:00 11/06/24 11:57 1 STRIP Insulin Human Regular HS SC 11/03/24 22:00 11/05/24 21:48 2 UNITS Insulin Human Regular AC SC 11/03/24 07:00 11/06/24 12:01 2 UNITS Dextrose 50 ml UD PRN IV 11/03/24 02:15 Acetaminophen 650 mg Q6HP PRN PO 11/03/24 02:15 Ondansetron HCl 4 mg Q4HP PRN IV 11/03/24 03:30 11/06/24 11:56 4 MG Pantoprazole Sodium 40 mg DAILY IV 11/03/24 04:15 11/05/24 09:00 40 MG Piperacillin Sod/ Tazobactam Sod 100 ml @ 25 mls/hr Q8H IV 11/03/24 17:00 11/06/24 00:45 25 MLS/HR Lactated Ringer's 1,000 ml @ 75 mls/hr [id number] IV 11/04/24 18:00 11/05/24 20:40 75 MLS/HR Morphine Sulfate 1 mg Q4HP PRN IV 11/06/24 11:30 11/06/24 11:57 1 MG Docusate Sodium 100 mg BID PO 11/06/24 22:00 Acetaminophen/ Hydrocodone Bitart 1 tab Q6HPRN PRN PO 11/06/24 11:30 Laboratory Results Laboratory Tests 11/06/24 06:22 Chemistry Test 11/06/24 06:22 Albumin 4.0 g/dL (3.2-4.8) Calcium Level 8.8 mg/dL (8.7-10.4) Magnesium Level 1.9 mg/dL (1.6-2.6) Total Protein 6.6 g/dL (5.7-8.2) LFT Test 11/06/24 06:22 Alanine Aminotransferase (ALT) 20 U/L (7-40) Alkaline Phosphatase 97 U/L (46-116) Aspartate Amino Transferase (AST) 24 U/L (13-40) Total Bilirubin 0.3 mg/dL (0.2-1.0) Urinalysis Test 11/02/24 22:30 Urine Color Light-yellow (Yellow) Urine Clarity Clear (Clear) Urine pH 5.5 (5.0-9.0) Urine Specific [place] 1.029 (1.001-1.035) Urine Protein Negative (Negative) Urine Ketones 2+ (Negative) H Urine Blood Negative /uL (Negative) Urine Nitrite Negative (Negative) Urine Bilirubin Negative (Negative) Urine Urobilinogen Normal mg/dL (Negative) Urine Leukocyte Esterase Negative /uL (Negative) Urine RBC 1 /hpf (0 - 3) Urine Microscopic WBC 2 /HPF (0-3) Urine Squamous Epithelial Cells Few /hpf (<5) Urine Bacteria None seen /hpf (None Seen) Urine Mucus Few (None Seen) Urine Glucose 4+ mg/dL (Normal) H Labs and/or images reviewed: Labs reviewed by me, Image(s) reviewed by me Assessment/Plan Assessment/Plan 48-year-old male with a past medical history significant for type 2 diabetes mellitus and dyslipidemia who presented with complaints of abdominal pain, nausea, and vomiting that began on Wednesday. He also reports associated constipation. The abdominal pain is described as sharp in nature, rated 10 out of 10 in intensity, without radiation, and with no identifiable aggravating or relieving factors. The patient states that he had been working outdoors in the sun from 7:00 a.m. to 5:00 p.m., during which he began to feel overheated and subsequently developed vomiting. He recalls having Mexican food for dinner that evening. Due to worsening symptoms and increasing weakness, he sought medical attention at a hospital in [place] yesterday, where he was informed that he had gallstones and was advised to undergo surgery. 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 CT abdomen negative for acute process, right upper quadrant ultrasound negative for gallbladder pathology. This is likely gastroenteritis. We will continue IV antibiotics, prn antiemetics, IV fluids rehydration,. Patient has history of spinal fusion in his aware of his broken screw and following primary ortho spinal surgeon at home. - weekend plan: If patient continues to improve can possibly think about p ossible discharge tomorrow with home antiemetics, antibiotics, full liquid diet. 11/06 patient went to OR for acute cholecystitis, status post lap cholecystectomy. Doing well. We will advance diet to full liquid diet draw pain with prn analgesics. We will continue to follow up with surgery. Appreciate surgical recommendations. Continuing IV antibiotics. dx: IV cholecystitis, status post laparoscopic cholecystectomy 11/06/2024. Acute gastroenteritis, infectious etiology possible Intractable nausea and vomiting Intractable abdominal pain P.o. intolerance # Cholelithiasis, ruled out # Type 2 diabetes mellitus # Dyslipidemia plan: - IV antibiotics, prn antiemetics, Prn analgesia IV fluids rehydration, Mild a.c. HS SSI Med surge Full code Plan discussed with: Patient My Orders Orders - LIBRA KING MD Procedure Category Date Status Time Morphine Sulfate PHA 11/06/24 In Process Injection 11:30 Docusate Sodium PHA 11/06/24 In Process Capsule (Colace 22:00 Hydrocodone-Acet PHA 11/06/24 In Process 5/325mg Tab (Antoine 11:30 Date of Service: Nov 06, 2024 Billing Provider: LIBRA KING MD Common Visit Codes: [id number] INP/OBS CARE(HIGH) LIBRA KING MD Nov 06, 2024 12:31
[2024-11-06 13:00] VITALS: BP 137/93; PULSE 92; RESP 18; TEMP 97.8; O2SAT 92
--- NOTE | 2024-11-06 13:24 | DVHOP2 ---
Operative Report - 2 Report Details Date: 11/06/24 Preop Diagnosis: Acute cholecystitis Postop Diagnosis: Symptomatic cholelithiasis Surgeon: Riley Baum MD Pickle Solution Maker: Eleazar Sagastume NP Anesthesiologist: Dr. Hagan Anesthesia: General Consent: The patient was informed of the risks and benefits of the procedure. These include but are not limited to complications of anesthesia, postoperative infection, incomplete relief of symptoms, recurrence of symptoms, damage to blood vessels, nerves and tendons, deep venous thrombosis, pulmonary embolism and possible need for repeat surgery in the future. Complications: None Estimated Blood Loss: 5 mL Findings: Normal appearing gallbladder Indications for Surgery: Stones on ultrasound, tenderness on physical exam, concern for acute cholecystitis Name of Procedure Performed Laparoscopic cholecystectomy Procedure Details Procedure Details: Upon arrival to the operating room the patient was transferred to the operating table and placed in the supine position with arms extended. General endotrache al anesthesia was induced, time-out was observed. Patient was then prepped and draped in the standard sterile surgical fashion with chlorhexidine. I then proceeded to make an infraumbilical midline incision over previous scar and dissected down to the fascia. I then grasped the umbilical stalk with Melinda clamp and walked it down to the base of the stalk. Once at the base I elevated the umbilical stalk and gained entry into the peritoneal cavity using Paul technique. I then placed a fascial retention stitch of 0 Vicryl in [id number] fashion. I then introduced the Paul cannula and insufflated the peritoneal cavity to 15 mmHg with toleration. I then introduced the camera and surveyed the entry site no injuries noted. Patient was then placed in the reverse Trendelenburg [id number] position. I then placed 3 additional 5 mm trocars under direct vision at the epigastric area, right midclavicular subcostal, and right flank. I then directed my attention to the liver gallbladder area. The gallbladder was immediately seen. The gallbladder fundus was grasped with grasper, and retracted cephalad towards the right shoulder. I then utilized a 2nd grasper to grasp the infundibulum and retract laterally. There were no inflammatory changes to the gallbladder. I then incised the peritoneum at the base of the gallbladder on either side and extended towards the liver. This exposed the Calot triangle. I I then fully skeletonized cholesterol angle to include the cystic artery and duct. Critical view was obtained. I then placed 2 5 mm clips proximal on the cystic artery and 1 distal. I then placed 3 5 mm clips on the cystic duct and 1 distal. Both artery and duct were transected. The gallbladder was then dissected off of the liver bed using electrocautery. Once the gallbladder was completely off it was placed in the Endo-Catch bag and removed from the peritoneal cavity. There was very minimal bile spillage due to a whole at 1 of the retraction sites in the gallbladder. Fossa and over the liver was serially irrigated until effluent was clear. There was a small area of raw surface oozing coming from the gallbladder fossa, this was cauterized. We then took a look at our clips everything was in place fully occluded. This concluded the gallbladder surgery portion of the case. I then inspected the peritoneal cavity for any signs of other pathology, and I did not see any other pathology. I then removed the 3 5 mm trocars under direct visualization, no bleeding from the abdominal wall. I then desufflated the peritoneal cavity completely. The fascial opening was closed with the previously placed fascial retention stitch. All counts complete and correct. All skin sites closed with 4-0 Monocryl and Dermabond. 0.25% Marcaine was used as local. Patient tolerated the procedure well and was transferred to PACU in the stable condition. Postoperative orders: 1. Okay for low-fat diet 2. Okay for discharge home today from surgical standpoint 3. No heavy lifting over 10 lb for 6-8 weeks 4. May shower in 24 hours, soap and water okay to run over incision sites 5. No bathing or swimming for 2 weeks 6.: Recommended pain regimen: Tylenol and/or ibuprofen as directed by sample case porter. For severe pain please prescribed [place] 5-325 mg p.o. every 6 hours p.r.n. severe pain 7. MiraLax 1 packet daily for 10 days 8. Please follow-up with Dr. Richey at surgery Clinic in 2 weeks Condition Stable Disposition Still a Patient RILEY CARBAJAL MD Nov 06, 2024 13:24
--- NOTE | 2024-11-06 13:32 | DVHPN2 ---
Progress Note - Dictate Date Seen: Nov 06, 2024 Medical Necessity Reason Pt with a Central, PICC or Fol: No Subjective S/P laparoscopic cholecystectomy today, gallbladder was normal Mild postop abdominal pain and nausea vital signs Vital Sign Date Time Temp Pulse Resp B/P (MAP) Pulse Ox O2 Delivery O2 Flow Rate FiO2 11/06/24 12:27 68 16 128/62 11/06/24 10:30 94 11/06/24 09:55 Mask 6.0 11/06/24 09:55 97.4 97.4 11/06/24 08:00 21 Total Intake and Output 11/05/24 11/05/24 11/06/24 15:00 23:00 07:00 Intake Total 100 ml 2182 ml 100 ml Balance 100 ml 2182 ml 100 ml medications Current Medications Medications Dose Ordered Sig/Donna Route Start Time Stop Time Status Last Admin Dose Admin Diagnostic Test (Pha) 1 strip ACHS 11/03/24 07:00 11/06/24 11:57 1 STRIP Insulin Human Regular HS SC 11/03/24 22:00 11/05/24 21:48 2 UNITS Insulin Human Regular AC SC 11/03/24 07:00 11/06/24 12:01 2 UNITS Dextrose 50 ml UD PRN IV 11/03/24 02:15 Acetaminophen 650 mg Q6HP PRN PO 11/03/24 02:15 Ondansetron HCl 4 mg Q4HP PRN IV 11/03/24 03:30 11/06/24 11:56 4 MG Pantoprazole Sodium 40 mg DAILY IV 11/03/24 04:15 11/05/24 09:00 40 MG Piperacillin Sod/ Tazobactam Sod 100 ml @ 25 mls/hr Q8H IV 11/03/24 17:00 11/06/24 00:45 25 MLS/HR Lactated Ringer's 1,000 ml @ 75 mls/hr [id number] IV 11/04/24 18:00 11/05/24 20:40 75 MLS/HR Morphine Sulfate 1 mg Q4HP PRN IV 11/06/24 11:30 11/06/24 11:57 1 MG Docusate Sodium 100 mg BID PO 11/06/24 22:00 Acetaminophen/ Hydrocodone Bitart 1 tab Q6HPRN PRN PO 11/06/24 11:30 objective General Appearance: Alert, Oriented X3, Cooperative Lungs: Clear to auscultation, Normal air movement Cardiovascular: Regular rate, Normal S1, Normal S2 Abdomen: Other (+Tenderness RUQ) Extremities: No edema laboratory and microbiology Laboratory Tests 11/06/24 06:22 Test 11/06/24 06:22 Range/Units Serum Glucose 121 H 74-106 mg/dL Problems(with codes): (1) Acute cholecystitis due to biliary calculus (2) Gallbladder sludge (3) Right upper quadrant abdominal pain Prognosis Plan Continue supportive care Advance diet as tolerated Protonix 40 mg p.o. daily Discharge planning as per hospitalist Outpatient follow up with GI Services for elective endoscopy and screening colonoscopy Dietary Evaluation Review Comments: 1) Encourage optimal PO intake 2) Advance to 60g CCHO cardiac diet when medically feasible 3) Follow-up with gastroenterology and cardiology 4) Continue to monitor I&O, labs, and skin integrity Expected Outcomes/Goals: 1) appetite and labs to improve 2) GI symptoms to resolve 3) diet to advance 4) f/u in 3-5 days Plan discussed with: Patient TARUN ANTUNEZ MD Nov 06, 2024 13:32
[2024-11-06] MEDS: HYDROcodone-ACET 5/325MG TAB PO PRN (14:33)
[2024-11-06 17:00] VITALS: BP 132/75; PULSE 81; RESP 17; TEMP 98; O2SAT 96
[2024-11-06 21:00] VITALS: BP 114/77; PULSE 87; RESP 20; TEMP 98.3; O2SAT 93
[2024-11-06] MEDS: DOCUSATE SOD 100 MG CAP PO SCH (22:36)
[2024-11-06] MEDS: ACETAMINOPHEN 325 MG TAB PO PRN (23:28)
[2024-11-07] MEDS ORDERED: CYCL-611 PO (07:51)
[2024-11-07] MEDS ORDERED: ATOR10TA52 PO (07:51)
[2024-11-07] MEDS ORDERED: METF-372 PO (07:51)
[2024-11-07] MEDS ORDERED: EMPA1TAB3 PO (07:51)
[2024-11-07] MEDS ORDERED: TIRZ12.5 SC (07:51)
[2024-11-07] MEDS ORDERED: LISI20TA56 PO (07:51)
[2024-11-07 08:00] VITALS: RESP 18
[2024-11-07] MEDS ORDERED: AUG875T PO (08:17)
--- NOTE | 2024-11-07 08:20 | DVHDS2 ---
Discharge Summary Date of Admission Nov 03, 2024 at 03:22 Date of Discharge: Nov 07, 2024 Labs/Diagnostic Data: Laboratory Results Test 11/07/24 06:46 11/06/24 06:22 11/05/24 07:41 11/03/24 05:04 POC Glucose 115 mg/dl (70-106) White Blood Count 6.0 10^3/uL (4.4-10.8) Red Blood Count 5.30 10^6/uL (4.5-5.90) Hemoglobin 14.5 g/dL (13.5-17.5) Hematocrit 42.8 % (41.0-53.0) Mean Corpuscular Volume 80.8 fL (80.0-100.0) Mean Corpuscular Hemoglobin 27.3 pg (28.0-32.0) Mean Corpuscular Hemoglobin Concent 33.8 g/dL (32.0-36.0) Red Cell Distribution Width 15.7 % (11.8-14.3) Platelet Count 177 10^3/uL (140-450) Mean Platelet Volume 7.9 fL (6.9-10.8) Neutrophils (%) (Auto) 58.4 % (37.0-80.0) Lymphocytes (%) (Auto) 29.2 % (10.0-50.0) Monocytes (%) (Auto) 8.7 % (0.0-12.0) Eosinophils (%) (Auto) 2.9 % (0.0-7.0) Basophils (%) (Auto) 0.8 % (0.0-2.0) Neutrophils # (Auto) 3.5 10 ^3/uL (1.6-8.6) Lymphocytes # (Auto) 1.8 10 ^3/uL (0.4-5.4) Monocytes # (Auto) 0.5 10 ^3/uL (0-1.3) Eosinophils # (Auto) 0.2 10 ^3/uL (0-0.8) Basophils # (Auto) 0 10 ^3/uL (0-0.2) Nucleated Red Blood Cells 0.1 % Sodium Level 142 mmol/L (136-145) Potassium Level 3.8 mmol/L (3.5-5.1) Chloride Level 105 mmol/L (98-107) Carbon Dioxide Level 27 mmol/L (20-31) Anion Gap 10 (5-15) Blood Urea Nitrogen 7 mg/dL (9-23) Creatinine 1.14 mg/dL (0.700-1.30) Glomerular Filtration Rate Calc 79 mL/min (>90) BUN/Creatinine Ratio 6.1 (10.0-20.0) Serum Glucose 121 mg/dL (74-106) Calcium Level 8.8 mg/dL (8.7-10.4) Magnesium Level 1.9 mg/dL (1.6-2.6) Total Bilirubin 0.3 mg/dL (0.2-1.0) Aspartate Amino Transferase (AST) 24 U/L (13-40) Alanine Aminotransferase (ALT) 20 U/L (7-40) Alkaline Phosphatase 97 U/L (46-116) Total Protein 6.6 g/dL (5.7-8.2) Albumin 4.0 g/dL (3.2-4.8) Prothrombin Time 10.9 sec (9.3-11.8) Prothrombin Time INR 1.03 (0.9-1.15) Activated Partial Thromboplast Time 27.6 SEC (24.5-34.5) Hemoglobin A1c 6.9 % A1C (<5.7) Lactic Acid Level 1.4 mmol/L (0.4-2.0) Triglycerides Level 126 mg/dL (< 150) Cholesterol Level 121 mg/dL (< 200) LDL Cholesterol 62 mg/dL (< 100) HDL Cholesterol 38 mg/dL (40-59) Lipase 53 U/L (12-53) Test 11/02/24 22:48 11/02/24 22:30 Troponin I High Sensitivity 3 ng/L (</=54) Plasma/Serum Blood Alcohol < 3.0 mg/dL (<10) Urine Color Light-yellow (Yellow) Urine Clarity Clear (Clear) Urine pH 5.5 (5.0-9.0) Urine Specific [place] 1.029 (1.001-1.035) Urine Protein Negative (Negative) Urine Ketones 2+ (Negative) Urine Blood Negative /uL (Negative) Urine Nitrite Negative (Negative) Urine Bilirubin Negative (Negative) Urine Urobilinogen Normal mg/dL (Negative) Urine Leukocyte Esterase Negative /uL (Negative) Urine RBC 1 /hpf (0 - 3) Urine Microscopic WBC 2 /HPF (0-3) Urine Squamous Epithelial Cells Few /hpf (<5) Urine Bacteria None seen /hpf (None Seen) Urine Mucus Few (None Seen) Urine Glucose 4+ mg/dL (Normal) Urine Opiates Screen Neg (NEGATIVE) Urine Fentanyl Screen Neg (NEGATIVE) Urine Barbiturates Screen Neg (NEGATIVE) Urine Phencyclidine Screen Neg (NEGATIVE) Urine Amphetamines Screen Neg (NEGATIVE) Urine Benzodiazepines Screen Neg (NEGATIVE) Urine Cocaine Screen Neg (NEGATIVE) Urine Cannabinoids Screen Neg (NEGATIVE) Other Laboratory Tests 11/06/24 06:22 Brief Hx & Hospital Course: 48-year-old male with a past medical history significant for type 2 diabetes mellitus and dyslipidemia who presented with complaints of abdominal pain, nausea, and vomiting that began on Wednesday. He also reports associated constipation. The abdominal pain is described as sharp in nature, rated 10 out of 10 in intensity, without radiation, and with no identifiable aggravating or relieving factors. The patient states that he had been working outdoors in the sun from 7:00 a.m. to 5:00 p.m., during which he began to feel overheated and subsequently developed vomiting. He recalls having [place] food for dinner that evening. Due to worsening symptoms and increasing weakness, he sought medical attention at a hospital in [place] yesterday, where he was informed that he had gallstones and was advised to undergo surgery. 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 CT abdomen negative for acute process, right upper quadrant ultrasound negative for gallbladder pathology. This is likely gastroenteritis. We will continue IV antibiotics, prn antiemetics, IV fluids rehydration,. Patient has history of spinal fusion in his aware of his broken screw and following primary ortho spinal surgeon at home. - weekend plan: If patient continues to improve can possibly think about p ossible discharge tomorrow with home antiemetics, antibiotics, full liquid diet. 11/06 patient went to OR for acute cholecystitis, status post lap cholecystectomy. Doing well. We will advance diet to full liquid diet draw pain with prn analgesics. We will continue to follow up with surgery. Appreciate surgical recommendations. Continuing IV antibiotics. 11/07 - healing well. tolerating po. vs stable. stable for discharge as per plan below. dx: acute cholecystitis, status post laparoscopic cholecystectomy 11/06/2024. Acute gastroenteritis, infectious etiology possible medication side effect possible (tirzeperitide, GLP1 agonist) Intractable nausea and vomiting Intractable abdominal pain P.o. intolerance # Cholelithiasis, ruled out # Type 2 diabetes mellitus # Dyslipidemia plan: - hold tirzeperitide until pcp review - augmentin 875mg 2x/day for 5 days - whole armenian yougurt , tablespon 2x/day for 14 days. - continue other medications (home meds) - follow-up with PCP and [facility] surgery to review hospital stay and for surgical follow-up. Condition at Discharge: Fair Final Diagnosis/Problems List acute cholecystitis, status post laparoscopic cholecystectomy 11/06/2024. Acute gastroenteritis, infectious etiology possible medication side effect possible (tirzeperitide, GLP1 agonist) Intractable nausea and vomiting Intractable abdominal pain P.o. intolerance # Cholelithiasis, ruled out # Type 2 diabetes mellitus # Dyslipidemia Discharge Disposition: Home Discharge Instruct/Medications Scheduled Amoxicillin & Pot Clavulanate (Augmentin Tablet), 875 MG PO BID Atorvastatin Calcium (Atorvastatin Calcium), 1 TAB PO DAILY, (Reported) Cyclobenzaprine HCl (Cyclobenzaprine Hydrochlo), 1 TAB PO DAILY, (Reported) Empagliflozin (Jardiance), 1 TAB PO DAILY, (Reported) Enalapril Maleate (Vasotec), 10 MG PO DAILY, (Reported) Lisinopril (Lisinopril), 1 TAB PO DAILY, (Reported) Welton Carbonate (Welton Carbonate), 600 MG PO BID, (Reported) Metformin Hydrochloride (Glucophage), 1,000 MG PO DAILY, (Reported) Metformin Hydrochloride (Glucophage), 500 MG PO QHSP, (Reported) Metformin Hydrochloride (Metformin Hcl), 1 TAB PO BID, (Reported) Propranolol Hcl (Inderal), 20 MG PO DAILY, (Reported) Rabeprazole Sodium (Aciphex), MG PO DAILY, (Reported) Sertraline Hcl (Zoloft), 100 MG PO DAILY, (Reported) Simvastatin (Simvastatin), 20 MG PO DAILY, (Reported) Tirzepatide (Mounjaro), 12.5 MG SC QWEEKLY, (Reported) Discharge Statement: "Patient was advised to return to the ER or call 911 if any headaches, dizziness, shortness of breath, chest pain, abdominal pain, bleeding, fevers, or worsening of medical condition. Patient was counseled about treatment plan, medications, possible side effects, patientverbalized understanding. All questions were answered to the best of my ability. This discharge took greater then 30 minutes in planning, reviewing documentation, counseling the patient, and discussing with other team members." ASSESSMENT ASSESSMENT Assessment Symptomatic cholelithiasis Date of Service: Nov 07, 2024 Billing Provider: LIBRA KING MD Common Visit Codes: 09767-ORW/OBS DISCH DAY >30min LIBRA KING MD Nov 07, 2024 08:20
[2024-11-07] MEDS ORDERED: PHENYLEPHRINE INJ 10 MG/ML 5ML VIAL IV ONE (09:34)
== END 2024-11-07 09:35 | disposition home or self-care (01) | DRG 418 ==
LOC: ER 21:29 → EDBD 21:29 → OVERFLOW 11-03 03:22 → WEST WING 11-03 15:50
PROVIDERS: ADMIT Student in an Organized Health Care Education/Training Program; ATTEND Student in an Organized Health Care Education/Training Program
PROC: 0FT44ZZ Resection of Gallbladder, Percutaneous Endoscopic Approach (ICD-10-PCS; principal; 2024-11-06 08:20)
DX: K81.0 Acute cholecystitis (principal); A09 Infectious gastroenteritis and colitis, unspecified; E78.2 Mixed hyperlipidemia; K82.8 Other specified diseases of gallbladder; E11.65 Type 2 diabetes mellitus with hyperglycemia; R16.0 Hepatomegaly, not elsewhere classified; Z83.3 Family history of diabetes mellitus; Z90.49 Acquired absence of other specified parts of digestive tract; Z98.1 Arthrodesis status; Z80.9 Family history of malignant neoplasm, unspecified; Z91.041 Radiographic dye allergy status; Z79.84 Long term (current) use of oral hypoglycemic drugs; Z79.899 Other long term (current) drug therapy
CPT/HCPCS: 36415; 71045; 74176; 76705; 80053; 80061; 80307; 80320; 81001; 82962; 83036; 83605; 83690; 83735; 84484; 85025; 85610; 85730; 86850; 86900; 86901; 96374; 96375; G0378; J0330; J0694; J1100; J1815; J2250; J2370; J2405; J2470; J2543; J2704; J3490